=== PATIENT | male | born 1980 | race Caucasian/White ===

== ENCOUNTER 2019-07-03 13:22 | Inpatient (IN) | payer OTHER ==
[~2019-07-03] VITALS: Ht 165.1 cm; Wt 69.9 kg
[~2019-07-03 13:22] MED LIST: CARISOPRODOL 3350 MG PO; CIPROFLOXACIN500 M3 OR; FLEXERIL PO; MELATONIN10 M1; NAPROSYN500 MG PO; NOHOMEMEDICATIONS; NORCO 5-325 TA1 EACH PO; ULTRAM 50MG TAB50 MG PO
[2019-07-03 13:26] VITALS: BP 136/73
[2019-07-03 13:58] LABS: HEMATOCRIT 39.2 % (42.0-52.0); HEMOGLOBIN 13.5 gm/dL (14.0-18.0); MCH 29.3 pg (26.0-34.0); MCHC 34.4 g/dL (28.0-37.0); MCV 85.2 fL (80.0-100.0); MPV 7.9 fl. (7.2-11.1); NUCLEATED RBCS 0 /100WBC; PLATELET COUNT* 261 thou/uL (150-400); RDW-CV 13.9 % (10.5-14.5); WBC 29.8 thou/uL (4.0-11.0)
[2019-07-03 14:08] LABS: CALCIUM 8.2 mg/dL (8.5-10.1); CREATININE 0.9 mg/dL (0.6-1.3); POTASSIUM 3.6 mmol/L (3.5-5.1)
[2019-07-03 14:09] LABS: INFLUENZA A ANTIGEN Negative (Negative); INFLUENZA B ANTIGEN Negative (Negative)
[2019-07-03 14:19] LABS: MAGNESIUM 1.4 mg/dL (1.8-2.4); TOTAL BILIRUBIN 0.9 mg/dL (<0.1-1.0); TOTAL PROTEIN 7.2 g/dL (6.4-8.2)
[2019-07-03 15:07] LABS: URINE BLOOD NEGATIVE (Negative); URINE CLARITY CLEAR; URINE COLOR YELLOW; URINE GLUCOSE-RANDOM NEGATIVE (Negative); URINE KETONES 1+ (Negative); URINE LEUKOCYTES-REFLEX NEGATIVE (Negative); URINE NITRITE-REFLEX NEGATIVE (Negative); URINE PROTEIN 2+ (Negative); URINE SPECIFIC GRAVITY 1.025 (1.005-1.030)
[2019-07-03 15:09] LABS: ABSOLUTE MONOCYTES 2.4 thou/uL (0.0-1.2); ABSOLUTE NEUTROPHILS 24.4 thou/uL (1.6-8.1); PLATELET ESTIMATE ADEQUATE
[2019-07-03 15:12] LABS: ICTOTEST (BILI CONFIRMATORY) Negative (Negative); URINE BILIRUBIN 1+ (Negative)
[2019-07-03 15:14] LABS: HYALINE CASTS 0-3 Few /LPF (None Seen); MUCUS 0-3 Light strn/LPF (None Seen); SQUAMOUS 0-3 Few /LPF (0-3); URINE WBC-REFLEX 0-5 Rare /HPF (0-5)
[2019-07-03 15:15] LABS: BACTERIA-REFLEX 1-9 Few /HPF (None Seen); CRYSTALS None Seen /LPF (None Seen); URINE RBC 0-2 Rare /HPF (0-2)
[2019-07-03 15:21] LABS: AMP/METHAMP POSITIVE (Negative); BARBITURATES Negative (Negative); BENZODIAZEPINES POSITIVE (Negative); COCAINE Negative (Negative); METHADONE Negative (Negative); OPIATES Negative (Negative); PCP Negative (Negative); THC POSITIVE (Negative)
[2019-07-03 17:26] VITALS: BP 135/68
[2019-07-03 17:48] VITALS: BP 141/77
[2019-07-03 18:55] VITALS: BP 119/59
--- NOTE | 2019-07-03 19:54 | NUR ---
PATIENT ARRIVED TO 3W. REPORT RECEIVED FROM JOHANA IN ED. DR. KEN NOTIFIED OF TEMPERATURE AND HEART RATE. RECEIVED NEW ORDERS.
[2019-07-03 20:00] VITALS: BP 94/55
--- NOTE | 2019-07-03 20:22 | NUR ---
REC REPORT FROM KINDRA PRICE ON 3W, PATIENT STATUS CHANGED TO TELE, VSS WITH THE EXCEPTION OF 102.1 FEVER- TYLENOL ADMINISTERED. PATIENTED ORIENTED TO ROOM AND HANDED OFF TO NIGHT KINDRA GRESHAM ON 2W
[2019-07-04] VITALS: BP 127/72
[2019-07-04 04:00] VITALS: BP 100/57
--- NOTE | 2019-07-04 06:04 | NUR ---
ASSESSMENTS COMPLETED AT BEDSIDE CHARTED, MEDICATIONS ADMINISTERED PER MAR. HOURLY ROUNDING ON PT FOR SAFETY, PT HAD CO HEADACHE AND FEVER TREATED WITH PRN MEDICATIONS. BED ALARM ON AND CALL LIGHT WITHIN REACH.
[2019-07-04 08:00] VITALS: BP 96/66
[2019-07-04 09:50] LABS: ABSOLUTE LYMPHOCYTES 2.5 thou/uL (0.8-5.3); ABSOLUTE MONOCYTES 1.4 thou/uL (0.0-1.2); ABSOLUTE NEUTROPHILS 19.2 thou/uL (1.6-8.1); BASOPHILS 0.1 %; HEMATOCRIT 38.6 % (42.0-52.0); HEMOGLOBIN 13.1 gm/dL (14.0-18.0); LYMPHOCYTES 10.8 %; MCH 28.8 pg (26.0-34.0); MCHC 33.8 g/dL (28.0-37.0); MCV 85.3 fL (80.0-100.0); MONOCYTES 5.9 %; MPV 7.8 fl. (7.2-11.1); NUCLEATED RBCS 0 /100WBC; PLATELET COUNT* 286 thou/uL (150-400); POLYS 83.2 %; RBC 4.53 mil/uL (4.50-6.00); RDW-CV 14.1 % (10.5-14.5); WBC 23.1 thou/uL (4.0-11.0)
[2019-07-04 09:56] LABS: CALCIUM 8.1 mg/dL (8.5-10.1); CREATININE 0.7 mg/dL (0.6-1.3)
[2019-07-04 10:08] LABS: POTASSIUM 3.3 mmol/L (3.5-5.1)
[2019-07-04 12:00] VITALS: BP 105/63
--- NOTE | 2019-07-04 12:33 | EKG ---
[place] [address] ELECTROCARDIOGRAM REPORT Name: TOBIAS MCDANIELS Room: [address] ADM IN M.R.#: [id number] Admission: 07/03/19 Attend Phys: Neema Gimenez, Discharge: Date of : 76 Date of Service: 07/03/19 1327 Report #: [id number] THIS REPORT FOR: //name// [facility] ED Test Date: 2019-07-03 Test Time: 13:27:25 Pat Name: TOBIAS MCDANIELS Department: Room: [facility] Gender: M Quality Compliance Coordinator: MS : 1980 Requested By: Cari Clark Order Number: [id number] MD: Herson Collins Measurements Intervals [place] Rate: 107 P: 54 CT: 160 QRS: 64 QRSD: 91 T: 73 QT: 322 QTc: 430 Interpretive Statements Sinus tachycardia Left atrial enlargement Anterior infarct, old Nonspecific T abnormalities, lateral leads Baseline wander in lead(s) I,II,aVR,V4 No previous ECG available for comparison Electronically Signed On 07-04-2019 12:32:09 CDT by Herson Collins [email or web address] <ELECTRONICALLY SIGNED> By: Herson Collins MD, [facility] 07/04/19 1232 1327 1327 Herson Collins MD, [facility] /EPI
--- NOTE | 2019-07-04 14:03 | NUR ---
ASSUMED CARE OF PT AT 0730. PT RESTING IN BED. A&0X4, DENIES ANY PAIN OR SHORTNESS OF BREATH AT THIS TIME. TRACING SR/ST ON THE SURVEY DIRECTOR. ON RA SAT UPPER 90'S. PT UP WITH SBA TO BATHROOM. IVF. PT RECEIVING IV ABX. AFEBRILE THIS AM AND EARLY AFTERNOON. RESPIRATORY VIRAL PANEL OBTAINED AND SENT TO LAB. AWAITING RESULTS. PT PLACED IN DROPLET PRECAUTIONS WHILE RESPIRATORY PANEL IS PENDING. ECHO ORDERED PER DR KEN. SANJUANA FROM THE LAB CALLED STATING POSITIVE BLOOD CULTURES WITH GRAM POSITIVE COCCI- DR KEN NOTIFIED. ORDERS RECEIVED TO START VANCOMYCIN. REFER TO EMAR. PT GOAL FOR TODAY IS REMAIN AFEBRILE, REPLACE POTASSIUM AND MAGNESIUM PER ELECTROLYTE PROTOCOL AND PAIN MGMT. AM ASSESSMENT CHARTED. MEDICATIONS PER JUN. PT REPOSITIONS SELF. HOURLY ROUNDING OBSERVED. BED IN LOW POSITION. CALL LIGHT WITHIN REACH. WILL CONTINUE PLAN OF CARE.
[2019-07-04 17:08] VITALS: BP 118/60
--- NOTE | 2019-07-04 17:46 | NUR ---
NO ACUTE CHANGES THROUGHOUT SHIFT. REFER TO CHARTING. PT DENIES ANY PAIN OR SHORTNESS OF BREATH THIS AFTERNOON. VISITORS AT BEDSIDE THROUGHOUT AFTERNOON. PT TO HAVE ECHO IN AM. PT REMAINED AFEBRILE. POTASSIUM AND MAG BEING REPLACED PER ELECTROLYTE PROTOCOL. REFER TO EMAR. IN DROPLET ISOLATION PENDING RESPIRATORY VIRAL PANEL. CONTINUES TO TRACE SR/ST ON THE ENVIRONMENTAL PROJECT MANAGER. ON RA SAT UPPER 90'S. UP SBA. MEDICATIONS PER JUN. PT REPOSITIONS SELF. HOURLY ROUNDING OBSERVED. BED IN LOW POSITION. CALL LIGHT WITHIN REACH. WILL CONTINUE PLAN OF CARE.
[2019-07-04 20:00] VITALS: BP 105/60
[2019-07-05 00:30] VITALS: BP 114/81
[2019-07-05 03:58] LABS: HEMATOCRIT 37.4 % (42.0-52.0); HEMOGLOBIN 12.5 gm/dL (14.0-18.0); MCH 28.6 pg (26.0-34.0); MCHC 33.4 g/dL (28.0-37.0); MCV 85.6 fL (80.0-100.0); MPV 8.1 fl. (7.2-11.1); RBC 4.36 mil/uL (4.50-6.00); RDW-CV 14.3 % (10.5-14.5); WBC 12.3 thou/uL (4.0-11.0)
[2019-07-05 04:00] VITALS: BP 123/78
[2019-07-05 04:31] LABS: ALBUMIN 2.2 g/dL (3.4-5.0); CALCIUM 7.9 mg/dL (8.5-10.1); CREATININE 0.6 mg/dL (0.6-1.3); TOTAL BILIRUBIN 0.2 mg/dL (<0.1-1.0); TOTAL PROTEIN 6.1 g/dL (6.4-8.2)
[2019-07-05 04:33] LABS: POTASSIUM 4.3 mmol/L (3.5-5.1)
--- NOTE | 2019-07-05 05:05 | NUR ---
ASSUMED PT CARE AT 1910. NURSING ASSESSMENT COMPLETED THIS SHIFT. PT VOICED NO CONCERNS THIS SHIFT. IVF INFUSING. HOURLY ROUNDING COMPLETED. CALL GE MURILLO WITHIN [facility].
[2019-07-05 08:00] VITALS: BP 120/80
--- NOTE | 2019-07-05 11:18 | NUR ---
Pt is A&O. Resides at home with his . Active and independent. No DME. No hx of HH or SNF. Goal [place]. Following.
[2019-07-05 12:12] VITALS: BP 110/84
--- NOTE | 2019-07-05 15:38 | 2DMMODE ---
[place] [address] 2 D/M-MODE ECHOCARDIOGRAM Name: TOBIAS MCDANIELS Room: [address] IN .R.#: [id number] Admission: 07/03/19 Attend Phys: Neema Gimenez, Discharge: Date of : 76 Date of Service: 07/05/19 1537 Report #: [id number] THIS REPORT FOR: cc: JOSE MARIA - No family physician/PCP JOSE MARIA - No family physician/PCP Sj Escobar MD [facility] ~ APPROVED REPORT Study performed: 07/05/2019 11:20:19 EXAM: Comprehensive 2D, Doppler, and color-flow Echocardiogram Patient Location: In-Patient Room #: [facility] Status: routine BSA: 1.78 HR: 87 bpm BP: 120/80 mmHg Rhythm: NSR Other Information Study Quality: Good Indications Chest Pain 2D Dimensions IVSd: 10.26 (7-11mm) LVOT Diam: 20.59 (18-24mm) LVDd: 47.94 mm PWd: 9.66 (7-11mm) Ascending Ao: 26.84 (22-36mm) LVDs: 30.90 (25-40mm) Aortic Root: 31.27 mm Volumes Left Atrial Volume (Systole) LA ESV Index: 25.20 mL/m2 Aortic Valve AoV Peak Shyam.: 1.35 m/s AO Peak Gr.: 7.30 mmHg LVOT Max P.18 mmHg AO Mean Gr.: 4.10 mmHg LVOT Mean P.51 mmHg LVOT Max V: 0.89 m/s AO V2 VTI: 27.08 cm LVOT Mean V: 0.56 m/s DORENE (VTI): 2.27 cm2 LVOT V1 VTI: 18.45 [place] [address] 2 D/M-MODE ECHOCARDIOGRAM Name: TOBIAS MCDANIELS Room: [address]#: [id number] Admission: 07/03/19 Attend Phys: Neema Gimenez, Discharge: Date of : 76 Date of Service: 07/05/19 1537 Report #: [id number] Mitral Valve E/A Ratio: 1.28 MV Decel. Time: 176.12 ms MV E Max Shyam.: 0.94 m/s MV PHT: 51.07 ms MVA (PHT): 4.31 cm2 TDI E/Lateral E': 7.23 E/Medial E': 6.27 Medial E' Shyam.: 0.15 m/s Lateral E' Shyam.: 0.13 m/s Pulmonary Valve PV Peak Shyam.: 0.95 m/s PV Peak Gr.: 3.64 mmHg Left Ventricle The left ventricle is normal size. There is normal LV segmental wall motion. There is normal left ventricular wall thickness. Left ventricular systolic function is normal. The left ventricular ejection fraction is within the normal range. LVEF is 55-60%. The left ventricular diastolic function is normal. Right Ventricle The right ventricle is normal size. The right ventricular systolic function is normal. Atria The left atrium size is normal. The right atrium size is normal. Aortic Valve The aortic valve is normal in structure. No aortic regurgitation is present. There is no aortic valvular stenosis. Mitral Valve The mitral valve is normal in structure. Mild mitral regurgitation. No evidence of mitral valve stenosis. Tricuspid Valve The tricuspid valve is normal in structure. There is no tricuspid valve regurgitation noted. Pulmonic Valve The pulmonary valve is normal in structure. [place] [address] 2 D/M-MODE ECHOCARDIOGRAM Name: TOBIAS MCDANIELS Room: [address]#: [id number] Admission: 07/03/19 Attend Phys: Neema Gimenez, Discharge: Date of : 76 Date of Service: 07/05/19 1537 Report #: [id number] Great Vessels The aortic root is normal in size. IVC is normal in size and collapses >50% with inspiration. Pericardium There is no pericardial effusion. <Conclusion> The left ventricle is normal size. There is normal left ventricular wall thickness. Left ventricular systolic function is normal. The left ventricular ejection fraction is within the normal range. LVEF is 55-60%. The left ventricular diastolic function is normal. The right ventricle is normal size. The left atrium size is normal. The aortic valve is normal in structure. The mitral valve is normal in structure. Mild mitral regurgitation. The tricuspid valve is normal in structure. IVC is normal in size and collapses >50% with inspiration. There is no pericardial effusion. There is normal LV segmental wall motion. <ELECTRONICALLY SIGNED> By: Sj Escobar MD, FACC 07/05/19 1537 1537 1537 Sj Escobar MD, FACC /INF
[2019-07-05 16:00] VITALS: BP 129/79
--- NOTE | 2019-07-05 20:19 | NUR ---
RECEIVED REPORT AND ASSUMED CARE AT 0700. VSS CARDIAC MONITORING IN PLACE. PT REPORTS HEADACHE, PRN MEDICATION PER EMAR. PT UP WITH ASSIST, ON RA. ASSESSMENT COMPLETED CHARTED. DISCUSSED PLAN OF CARE WITH PT. VERBALIZED UNDERSTANDING. BED LOCKED IN LOWEST POSITION, CALL LIGHT WITHIN REACH, BED ALARM ON. NO ACUTE CHANGES THROUGH THE SHIFT. HOURSLY ROUNDING COMPELTED AND ALL NEEDS MET
--- NOTE | 2019-07-06 02:13 | NUR ---
ASSUMED CARE OF PT AT 1900. PT IS ALERT AND ORIENTED. VSS. PERRLA. NO COMPLAINTS OF PAIN. PT IS IN SINUS RYTHM ON THE TELEMETRY. PT IS RESTING COMFORTABLY IN BED. RESPIRATIONS ARE EVEN AND NONLABORED. WILL CONTINUE TO MONITOR PT.
[2019-07-06 04:19] VITALS: BP 109/66
[2019-07-06 05:16] LABS: ABSOLUTE BASOPHILS 0.1 thou/uL (0.0-0.2); ABSOLUTE EOSINOPHILS 0.1 thou/uL (0.0-0.7); ABSOLUTE LYMPHOCYTES 2.6 thou/uL (0.8-5.3); ABSOLUTE MONOCYTES 0.8 thou/uL (0.0-1.2); ABSOLUTE NEUTROPHILS 4.5 thou/uL (1.6-8.1); BASOPHILS 1.2 %; EOSINOPHILS 1.3 %; HEMATOCRIT 38.1 % (42.0-52.0); LYMPHOCYTES 31.9 %; MCH 28.9 pg (26.0-34.0); MCHC 34.1 g/dL (28.0-37.0); MCV 84.7 fL (80.0-100.0); MONOCYTES 10.2 %; MPV 7.7 fl. (7.2-11.1); NUCLEATED RBCS 0 /100WBC; POLYS 55.4 %; RDW-CV 14.5 % (10.5-14.5); WBC 8.2 thou/uL (4.0-11.0)
[2019-07-06 05:26] LABS: PLATELET COUNT* 402 thou/uL (150-400)
[2019-07-06 05:31] LABS: ALBUMIN 2.3 g/dL (3.4-5.0); CALCIUM 7.9 mg/dL (8.5-10.1); CREATININE 0.7 mg/dL (0.6-1.3); POTASSIUM 3.6 mmol/L (3.5-5.1); TOTAL BILIRUBIN 0.2 mg/dL (<0.1-1.0); TOTAL PROTEIN 6.3 g/dL (6.4-8.2)
[2019-07-06 05:39] LABS: PREALBUMIN 12.9 mg/dL (18.0-35.7)
[2019-07-06 08:00] VITALS: BP 132/80
--- NOTE | 2019-07-06 08:01 | CON ---
[address] [address] CONSULTATION Name: LILO MCDANIELSWINNIE Gaytan Room: [address] IN M.R.#: [id number] Admission: 07/03/19 Attend Phys: Neema Gimenez MD Discharge: Date of : 76 Report #: [id number] THIS REPORT FOR: //name// cc: JOSE MARIA Phipps family physician/PCP JOSE MARIA - Desire family physician/PCP ~ THIS REPORT FOR: //name// CC: JOSE MARIA physician/PCP Neema Gimenez DATE OF SERVICE: 07/05/2019 INFECTIOUS DISEASE CONSULTATION ATTENDING PHYSICIAN: Neema Gimenez MD REASON FOR EVALUATION: Severe community-acquired pneumonia. HISTORY OF PRESENT ILLNESS: Chart reviewed, patient examined. This is a 39-year-old man with no significant medical history, question of polysubstance abuse. He is known to be smoke cigarettes, who apparently was diagnosed with describes as the flu. Last week, it seemed to have run its course. He was actually returned to work, only to have increasing dyspnea associated cough. Latter part of last week, he was sent home early on Friday, did describe fevers. Denied any anorexia. Did have some right-sided chest pain seemed to be pleuritic in nature, was not encephalopathic. Did have evaluation in the emergency room. Influenza antigen was negative. Chest x-ray showed right perihilar mass density. CT confirmed air bronchograms. Denied evidence of PE. Lactic acid was in the normal range as was a troponin. He was empirically started on combination therapy for community-acquired pneumonia including vancomycin as well as azithromycin and ceftriaxone. Overall, he has improved. He has actually maintained on room air oxygen. He is not encephalopathic. ALLERGIES: None known. MEDICATIONS: Currently include vancomycin, enoxaparin, nicotine patch, azithromycin, ceftriaxone, p.r.n. analgesics, pantoprazole, ipratropium and albuterol inhaler, p.r.n. antiemetics. PAST MEDICAL HISTORY: Otherwise, unremarkable. SOCIAL HISTORY: No ethanol. Smokes cigarettes. Used marijuana in the last 3 months. FAMILY HISTORY: [place] [address] CONSULTATION Name: LILO MCDANIELSWINNIE Gaytan Room: [address]#: [id number] Admission: 07/03/19 Attend Phys: Neema Gimenez MD Discharge: Date of : 76 Report #: [id number] REVIEW OF SYSTEMS: Denies any gastrointestinal-related complaints, otherwise unremarkable. PHYSICAL EXAMINATION: GENERAL: He appears ill, not overtly toxic. He is mildly dyspneic, although he is on room air oxygen. He is not encephalopathic. VITAL SIGNS: Temperature 97.7. He had a temperature of 103.2 earlier this week. Pulse 77, respirations 17, blood pressure 120/80. SKIN: Warm, dry, no rashes. HEENT: Normocephalic. Extraocular muscles intact. NECK: Supple. LUNGS: Scattered coarse breath sounds, right greater than left. HEART: Regular. I do not appreciate any murmur. ABDOMEN: Soft, nontender, nondistended. EXTREMITIES: No cyanosis. GENITOURINARY: Deferred. RECTAL: Deferred. LABORATORY DATA: Blood cultures, Gram-positive cocci in chains in 1 out of 2, awaiting ID and susceptibility. Electrolytes: Sodium 131, potassium 3.6, chloride 95, bicarbonate is 26, anion gap of 10, BUN and creatinine 9 and 0.9, albumin of 3, total protein 7.2. Estimated GFR of 93. CBC: White count of 29.8 initially H and H 13.5 and 39.2, platelets of 261. Repeat CBC this morning, white count of 12.3, H and H 12.5 and 37.4, platelets of 309. ASSESSMENT AND PLAN: Severe community-acquired pneumonia. This may be previous viral pneumonitis, biphasic pattern. Subsequently, developed a bacterial etiology. We will continue combination antimicrobial therapy to cover bacterial pathogens in this setting. Seemingly has overall improved since admission. We will await results of blood culture, pared-down therapy, ideally oral regimen prior to discharge. We will add incentive spirometry. Increase activity. <ELECTRONICALLY SIGNED> By: Ivan Echeverria MD 07/06/19 0801 [id number] Echeverria MD /nt
[2019-07-06 10:56] VITALS: BP 132/80
[2019-07-06] MEDS ORDERED: CEFDINIR300 MG PO (11:00)
--- NOTE | 2019-07-06 11:32 | NUR ---
ASSUMED PT CARE REPORT RECEIVED FROM NURSE. PT IS AOX4. ON RA. NO COMPLAINT. TRACING SR ON STRIPPER PRINTED CIRCUIT BOARDS. DISCHARGE ORDERED. DC INSTRUCTION GIVEN TO PT.MEDICATION SCRIPT GIVEN. PT LEFT FLOOR AT 1129 ACCOMPANIED BY MOTHER AND MARY KATE Shankar A WHEELCHAIR.
[2019-07-06 11:35] VITALS: BP 132/80
== END 2019-07-06 11:29 | disposition home or self-care (01) | DRG 871 ==
LOC: M.ERS 13:22 → M.TBA-ER 16:32 → M.2W 16:32 → M.3W 17:36 → M.2W 18:47
PROVIDERS: Internal Medicine; Nurse Practitioner Family; ADMIT Internal Medicine
DX: A41.9 Sepsis, unspecified organism (principal); J15.6 Pneumonia due to other Gram-negative bacteria; J96.01 Acute respiratory failure with hypoxia; F19.10 Other psychoactive substance abuse, uncomplicated; F17.210 Nicotine dependence, cigarettes, uncomplicated; Z79.899 Other long term (current) drug therapy; Z79.51 Long term (current) use of inhaled steroids; Z28.21 Immunization not carried out because of patient refusal